=== PATIENT | female | born 1990 | race Caucasian/White ===

== ENCOUNTER 2021-01-10 13:13 | Outpatient (CLI) | payer MEDICAID, SELFPAY ==
--- NOTE | ~2021-01-10 | US_ITS ---
EXAMINATION: US OB <=14 wk fetus w TV DATE: 01/10/2021 13:53 INDICATION: Uncertain dates. TECHNIQUE: Real-time transabdominal and transvaginal pelvic ultrasound was performed. COMPARISON: None. FINDINGS: TRANSABDOMINAL ULTRASOUND: The uterus measures 13.5 x 7.8 x 9.9 cm. TRANSVAGINAL ULTRASOUND: There is an intrauterine gestational sac. The crown rump length measur es 5.3 cm, which correlates with an estimated gestational age of 12 weeks and 0 day(s) (+/-) 1 week(s ) and 1 day(s). heart motion is identified measuring 171 beats per minute (bpm) by M-mode Doppl er. The right ovary measures 1.7 x 3.2 x 1.7 cm. The left ovary measures 2.2 x 1.8 x 2.7 cm. There is normal vascular flow in the ovaries. There is no free fluid in the pelvis. IMPRESSION: 1. Single living intrauterine gestation with estimated date of delivery of 07/25/2021. Reviewed, dictated and finalized at location A. [employer] IMPRESSION: 1. Single living intrauterine gestation with estimated date of delivery of 07/25.
== END 2021-01-10 13:14 | disposition home or self-care (01) ==
PROVIDERS: Visit Provider Student in an Organized Health Care Education/Training Program
DX: Z34.91 Encounter for supervision of normal pregnancy, unspecified, first trimester (principal); Z3A.01 Less than 8 weeks gestation of pregnancy
CPT/HCPCS: 76801; 76817

== ENCOUNTER 2021-01-19 11:09 | Outpatient (CLI) | payer OTHER, SELFPAY ==
[2021-01-19 18:42] LABS: Add Urine Microscopic? YES; Appearance Urine Clear (Clear); Bilirubin Urine Negative (Negative); Blood Urine Negative (Negative); Calcium Oxalate Crystals Urine Present /hpf; Color Urine Yellow (Yellow); Glucose Urine UA Negative (Negative); Ketones Urine Negative (Negative); Leukocyte Esterase Ur Negative LEU/UL (NEGATIVE); Mucus Urine Rare /lpf; Nitrate Urine Negative (Negative); Protein Urine 1+ mg/dL (Negative); RBC Urine 0-2 /hpf (0-2); Specific Grav Ur 1.026 (1.001-1.035); Squamous Epithelial Cell Urine Few /hpf (Few); WBC Urine 0-3 /hpf (0-3)
[2021-01-19 18:45] LABS: Basophils Percent Auto 0.2 % (0.2-1.2); Eosinophils Absolute Auto 0.1 K/mm3 (0-0.3); Eosinophils Percent Auto 0.9 % (0-4.4); Hemoglobin 12.9 g/dL (12.0-15.0); Immature Granulocyte Absolute 0.04 K/mm3 (0.00-0.031); Immature Granulocyte Percent A 0.3 % (0-0.5); Lymphocytes Absolute Auto 1.99 K/mm3 (0.9-3.2); Lymphocytes Percent Auto 15.8 % (18.3-44.2); Mean Corpuscular HGB Conc 33.1 g/dl (32-36); Mean Corpuscular Hemoglobin 29.3 pg (26-34); Mean Corpuscular Volume 88.6 fl (80-100); Mean Platelet Volume 9.6 fl (7.4-10.4); Monocytes Absolute Auto 0.5 K/mm3 (0.1-0.6); Monocytes Percent Auto 3.7 % (2.6-8.5); Neutrophils Percent Auto 79.1 % (45.5-73.1); Platelet Count Result 292 k/mm3 (150-375); Red Cell Distribution Width 13.8 % (11.5-14.5); White Blood Count 12.6 K/mm3 (4.5-10.0)
[2021-01-19 19:30] LABS: Hepatitis B Surface Antigen Negative (Negative); Rubella IgG Antibody 22.2 IU/ML
[2021-01-19 19:33] LABS: Vitamin D 25 Hydroxy 26.1 ng/mL
[2021-01-19 19:41] LABS: HIV 1/2 Ab P24 Ag Result Negative (Negative)
[2021-01-19 19:46] LABS: Hepatitis C Virus Antibody Negative (Negative)
[2021-01-21 09:06] LABS: Rapid Plasma Reagin Non-Reactive (NonReactive)
[2021-01-25 02:10] LABS: Hematocrit 37.8 % (35.0-45.0); Hemoglobin 12.6 g/dL (11.7-15.5); MCH 29.5 pg (27.0-33.0); MCV 88.5 FL (80.0-100.0); RDW 14.8 % (11.0-15.0); Red Blood Cell Count 4.27 Mill/uL (3.80-5.10)
[2021-01-30 19:02] LABS: CF Result NEGATIVE (NEGATIVE)
== END 2021-01-19 11:10 | disposition home or self-care (01) ==
PROVIDERS: Visit Provider Student in an Organized Health Care Education/Training Program
DX: Z34.91 Encounter for supervision of normal pregnancy, unspecified, first trimester (principal); Z3A.13 13 weeks gestation of pregnancy
CPT/HCPCS: 36415; 81001; 81220; 81243; 82306; 83021; 84443; 85025; 86592; 86703; 86762; 86787; 86803; 86850; 86900; 86901; 87086; 87088; 87340; G0432

== ENCOUNTER → 2021-04-02 08:29 | Outpatient (CLI) | payer OTHER, SELFPAY ==
[2021-04-02 18:48] LABS: SARS-CoV-2 RNA PCR Negative
== END ==
PROVIDERS: PCP Student in an Organized Health Care Education/Training Program; Visit Provider Obstetrics & Gynecology
DX: R05 Cough (principal); Z20.822 Contact with and (suspected) exposure to COVID-19
CPT/HCPCS: C9803; U0003; U0005

== ENCOUNTER 2021-04-30 09:14 | Outpatient (CLI) | payer OTHER, SELFPAY ==
[2021-04-30 18:04] LABS: Basophils Percent Auto 0.2 % (0.2-1.2); Eosinophils Absolute Auto 0.1 K/mm3 (0-0.3); Eosinophils Percent Auto 1.2 % (0-4.4); Glucose 1 Hour PP 50gm Dose 150 mg/dL; Hematocrit 37.3 % (37.0-47.0); Hemoglobin 11.9 g/dL (12.0-15.0); Immature Granulocyte Absolute 0.04 K/mm3 (0.00-0.031); Immature Granulocyte Percent A 0.4 % (0-0.5); Lymphocytes Percent Auto 14.9 % (18.3-44.2); Mean Corpuscular HGB Conc 31.9 g/dl (32-36); Mean Corpuscular Volume 90.8 fl (80-100); Mean Platelet Volume 9.9 fl (7.4-10.4); Monocytes Absolute Auto 0.5 K/mm3 (0.1-0.6); Monocytes Percent Auto 4.6 % (2.6-8.5); Neutrophils Percent Auto 78.7 % (45.5-73.1); Platelet Count Result 287 k/mm3 (150-375); Red Blood Count 4.11 M/mm3 (4.2-5.4); Red Cell Distribution Width 13.6 % (11.5-14.5); White Blood Count 11.4 K/mm3 (4.5-10.0)
== END 2021-04-30 09:15 | disposition home or self-care (01) ==
LOC: ANHBWCLAB 09:15
PROVIDERS: PCP Student in an Organized Health Care Education/Training Program; Visit Provider Student in an Organized Health Care Education/Training Program
DX: Z34.82 Encounter for supervision of other normal pregnancy, second trimester (principal)
CPT/HCPCS: 36415; 82947; 85025

== ENCOUNTER 2021-05-28 07:05 | Outpatient (CLI) | payer OTHER, SELFPAY ==
[2021-05-28 07:37] LABS: Glucose Fasting Gestational 109 mg/dL (>/=95)
[2021-05-28 09:26] LABS: Glucose 1 Hour Gest 171 mg/dL (>/=180)
[2021-05-28 10:34] LABS: Glucose 2 Hour Gest 81 mg/dL (>/= 155)
[2021-05-28 11:17] LABS: Glucose 3 Hour Gest 97 mg/dL (>/=140)
== END 2021-05-28 07:06 | disposition home or self-care (01) ==
PROVIDERS: PCP Student in an Organized Health Care Education/Training Program; Visit Provider Student in an Organized Health Care Education/Training Program
DX: R73.09 Other abnormal glucose (principal)
CPT/HCPCS: 36415; 82951; 82952

== ENCOUNTER 2021-06-14 14:42 | Outpatient (RCR) | payer OTHER, SELFPAY ==
--- NOTE | ~2021-06-14 | US_ITS ---
EXAMINATION: US OB BPP wo non-stress DATE: 06/14/2021 16:20 INDICATION: Decreased movement during third trimester TECHNIQUE: Real-time pelvic ultrasound was performed. The interpreting radiologist was not present fo r the study. COMPARISON: None. FINDINGS: There is a single living fetus in vertex presentation. The placenta is posterior. heart rate is 145 beats per minute (bpm). Biophysical profile performed by the technologist: breathing (30 sec sustained breathing in 30 minutes): 2 out of 2 movement (3 gross body movements in 30 minutes): 2 out of 2 tone (one episode of qxuemsk-ssdnexicj-aknifnm limb movement): 2 out of 2 Amniotic fluid pocket (2 cm): 2 out of 2 Total score: 8 out of 8 IMPRESSION: 1. Single living fetus in vertex presentation. 2. Biophysical profile 8 out of 8. Reviewed, dictated and finalized at location A.
[2021-06-14 16:56] LABS: Add Urine Microscopic? NO; Appearance Urine Clear (Clear); Bilirubin Urine Negative (Negative); Blood Urine Negative (Negative); Color Urine Yellow (Yellow); Glucose Urine UA Negative (Negative); Ketones Urine Negative (Negative); Leukocyte Esterase Ur Negative LEU/UL (Negative); Nitrate Urine Negative (Negative); Protein Urine Negative (Negative); Specific Grav Ur 1.021 (1.001-1.035); Urobilinogen Urine Negative mg/dL (<2.0)
[2021-06-14 17:42] VITALS: BP 123/76; PULSE 101
== END 2021-07-05 08:12 | disposition home or self-care (01) ==
LOC: ANHOBOP 14:42
PROVIDERS: Visit Provider Student in an Organized Health Care Education/Training Program
DX: O36.8130 Decreased fetal movements, third trimester, not applicable or unspecified (principal); O40.3XX0 Polyhydramnios, third trimester, not applicable or unspecified; Z3A.34 34 weeks gestation of pregnancy
CPT/HCPCS: 59025; 76819; 81003

== ENCOUNTER 2021-06-22 09:35 | Outpatient (CLI) | payer OTHER, SELFPAY ==
[2021-06-22 18:04] LABS: Basophils Percent Auto 0.2 % (0.2-1.2); Eosinophils Absolute Auto 0.1 K/mm3 (0-0.3); Eosinophils Percent Auto 0.7 % (0-4.4); Hematocrit 35.5 % (37.0-47.0); Hemoglobin 11.4 g/dL (12.0-15.0); Immature Granulocyte Absolute 0.06 K/mm3 (0.00-0.031); Immature Granulocyte Percent A 0.5 % (0-0.5); Lymphocytes Percent Auto 15.1 % (18.3-44.2); Mean Corpuscular HGB Conc 32.1 g/dl (32-36); Mean Corpuscular Hemoglobin 28.2 pg (26-34); Mean Corpuscular Volume 87.9 fl (80-100); Mean Platelet Volume 9.9 fl (7.4-10.4); Monocytes Absolute Auto 0.7 K/mm3 (0.1-0.6); Monocytes Percent Auto 5.6 % (2.6-8.5); Neutrophils Absolute Auto 9.8 K/mm3 (1.3-6.7); Neutrophils Percent Auto 77.9 % (45.5-73.1); Platelet Count Result 345 k/mm3 (150-375); Red Blood Count 4.04 M/mm3 (4.2-5.4); Red Cell Distribution Width 13.1 % (11.5-14.5); White Blood Count 12.6 K/mm3 (4.5-10.0)
[2021-06-22 18:52] LABS: HIV 1/2 Ab P24 Ag Result Negative (Negative)
[2021-06-25 06:24] LABS: Rapid Plasma Reagin Non-Reactive (NonReactive)
== END 2021-06-22 09:36 | disposition home or self-care (01) ==
PROVIDERS: Visit Provider Student in an Organized Health Care Education/Training Program
DX: Z34.90 Encounter for supervision of normal pregnancy, unspecified, unspecified trimester (principal)
CPT/HCPCS: 36415; 85025; 86592; 86703; G0432

== ENCOUNTER 2021-07-02 17:15 | Inpatient (IN) | payer OTHER, SELFPAY ==
[2021-07-02] VITALS (16 sets, daily range): BP systolic 102–127; BP diastolic 62–93; PULSE 82–100; TEMP 35.9–36.4; BMI 44.4
--- NOTE | 2021-07-02 17:33 | LDADM ---
This patient, Justine Bedolla, was admitted to Labor/Delivery/Recovery 106 on 07/02/21 at 17:15. Plans for labor, pain management and were discussed with patient. Patient/family oriented to hospital policies and general routines including ID bracelet, bed and alarms, visiting hours, pain management, procedures, bathroom and other care routines, personal items, smoking policy, room service/diet and guest tray routines, infant security routines, and visiting hours. Patient/Family are encouraged to report perceived risks to care and to ask questions if they do not understand what they are told or what they should do. See OBIX for further documentation.
[2021-07-02 18:14] LABS: Basophils Percent Auto 0.2 % (0.2-1.2); Eosinophils Absolute Auto 0.1 K/mm3 (0-0.3); Eosinophils Percent Auto 0.8 % (0-4.4); Hematocrit 34.4 % (37.0-47.0); Hemoglobin 11.1 g/dL (12.0-15.0); Immature Granulocyte Absolute 0.09 K/mm3 (0.00-0.031); Immature Granulocyte Percent A 0.6 % (0-0.5); Lymphocytes Absolute Auto 2.22 K/mm3 (0.9-3.2); Lymphocytes Percent Auto 14.8 % (18.3-44.2); Mean Corpuscular HGB Conc 32.3 g/dl (32-36); Mean Corpuscular Hemoglobin 28.2 pg (26-34); Mean Corpuscular Volume 87.5 fl (80-100); Mean Platelet Volume 10.3 fl (7.4-10.4); Monocytes Absolute Auto 0.9 K/mm3 (0.1-0.6); Monocytes Percent Auto 5.7 % (2.6-8.5); Neutrophils Absolute Auto 11.7 K/mm3 (1.3-6.7); Neutrophils Percent Auto 77.9 % (45.5-73.1); Platelet Count Result 287 k/mm3 (150-375); Red Blood Count 3.93 M/mm3 (4.2-5.4); Red Cell Distribution Width 13.2 % (11.5-14.5)
[2021-07-02] MEDS: DINOPROSTONE 10 MG VAG INSERT VAGINAL (18:42)
[2021-07-03] VITALS (136 sets, daily range): BP systolic 68–138; BP diastolic 22–90; PULSE 59–127; RESP 16–20; TEMP 35.8–36.7; O2SAT 95–100
[2021-07-03] MEDS: fentaNYL CITRATE INJ (*CRX) 100 MCG/2 ML VIAL 50 MCG IV PUSH ×3 (00:47→07:00)
[2021-07-03] MEDS: FAMOTIDINE 20 MG TABLET PO (00:49)
[2021-07-03] MEDS: fentaNYL CITRATE INJ (*CRX) 100 MCG/2 ML VIAL IV PUSH (04:00)
[2021-07-03] MEDS: ACETAMINOPHEN 325 MG TABLET 650 MG PO ×3 (05:45→19:24)
[2021-07-03] MEDS: ONDANSETRON INJ 4 MG/2 ML VIAL IV PUSH (06:07)
[2021-07-03] MEDS: LACTATED RINGERS 1,000 ML 125 ML IV CONT ×3 (06:32→09:39)
[2021-07-03] MEDS: PHENYLEPHRINE 1,000 MCG/10 ML SYRINGE 100 MCG IV PUSH ×3 (07:31→09:31)
--- NOTE | 2021-07-03 07:59 | WPDANESEPP ---
Anes - Eval Pre Procedure Procedure: labor epidural Date/Time: 07/03/21 07:59 Surgeon: jaron Preop Diagnosis: pain during labor Pre Op Diagnosis: Induction of Labor Patient Data Age: 31 Gender: F Height: 1.63 m Weight: 117.4 kg Last Vital Signs Temp 36.2 C L 07/03/21 06:07 Pulse 68 07/03/21 07:56 Resp 20 07/03/21 06:07 BP 96/45 L 07/03/21 07:56 Pulse Ox 100 07/03/21 07:55 Allergies Allergy/AdvReac Type Severity Reaction Status Date / Time No Known Allergies Allergy Verified 06/28/21 12:55 Home Medications Medication Instructions Recorded Confirmed Type famotidine 10 mg tablet 10 mg PO BID #60 tablet 06/28/21 07/02/21 Rx vit no.[id number] 1 tablet DAILY 07/02/21 07/02/21 History [Classic ] Laboratory Tests 07/02/21 07/02/21 07/02/21 18:04 18:04 20:58 WBC 15.0 K/mm3 H K/mm3 (4.5-10.0) RBC 3.93 M/mm3 L M/mm3 (4.2-5.4) Hgb 11.1 g/dL L g/dL (12.0-15.0) Hct 34.4 % L % (37.0-47.0) MCV 87.5 fl fl (80-100) MCH 28.2 pg pg (26-34) MCHC 32.3 g/dl g/dl (32-36) RDW 13.2 % % (11.5-14.5) Plt Count 287 k/mm3 k/mm3 (150-375) MPV 10.3 fl fl (7.4-10.4) Immature Gran % (Auto) 0.6 % H % (0-0.5) Neut % (Auto) 77.9 % H % (45.5-73.1) Lymph % (Auto) 14.8 % L % (18.3-44.2) [place] % (Auto) 5.7 % % (2.6-8.5) Eos % (Auto) 0.8 % % (0-4.4) Baso % (Auto) 0.2 % % (0.2-1.2) Lymph # (Auto) 2.22 K/mm3 K/mm3 (0.9-3.2) [place] # (Auto) 0.9 K/mm3 H K/mm3 (0.1-0.6) Eos # (Auto) 0.1 K/mm3 K/mm3 (0-0.3) Baso # (Auto) 0.0 K/mm3 K/mm3 (0.0-0.1) Abs Immat Gran (auto) 0.09 K/mm3 H K/mm3 (0.00-0.031) Absolute Neuts (auto) 11.7 K/mm3 H K/mm3 (1.3-6.7) Absolute Nucleated RBC 0.0 K/mm3 K/mm3 (0.0-0.012) Nucleated RBC % 0.0 % % (0.0-0.2) RPR Pending Blood Type AB Positive Antibody Screen Negative Patient hx anesthesia problems: none Family hx anesthesia problems: none [facility] Past Medical History Medical History (Updated 07/03/21 @ 07:59 by Nesha Johnson CRNA) History of miscarriage 2012 History of vaginal delivery x 2 Morbid obesity with BMI of 40.0-44.9, adult Surgical History Surgical History History of cholecystectomy 2017 History of dilation and curettage 2012 Family History Family History Father Hypertension Grandparent Cerebrovascular accident Mother Hypertension Diabetes mellitus Social History Social History Years smoked: 20 Smoking status: Current every day smoker Tobacco type: cigarettes Second hand tobacco smoke exposure: Yes Alcohol intake: never Substance use: current Gender identity (if verbalized by the patient): Female Spiritual care concerns: No Exam Day of Procedure 07/03/21 07:59
[2021-07-03] MEDS: OXYTOCIN 30 UNITS/NS 500 ML 30 UNITS/500 ML BAG IV CONT (08:09)
--- NOTE | 2021-07-03 09:03 | PM.IMHP ---
H&P: HPI History of Present Illness Date/Time: 07/03/21 09:03 Patient admitted on 07/02/2021 for medical induction of labor due to severe polyhydramnios. Maternal- Medicine recommended delivery due to the severe polyhydramnios with an BECKY of 35.6. Patient has been informed of recommendation by M and risks benefits of induction of labor versus no induction and awaiting spontaneous labor. She agreed with the induction. Her GBS is negative. Her last cervical exam was unfavorable. Her labs were reviewed. Chief Complaint: Polyhydramnios Review of Systems Review of Systems: All systems reviewed & are unremarkable except as noted in HPI and below Constitutional: Constitutional: Reports no additional constitutional complaints and Denies headache(s) Eyes: Eyes: Denies spots in vision ENT: Reports system reviewed and no additional complaints, except as documented and Denies headache(s) Cardiovascular: Cardiovascular: Denies chest pain and Denies dyspnea Respiratory: Respiratory: Denies dyspnea Gastrointestinal: Gastrointestinal: Reports no additional gastrointestinal complaints Genitourinary: Genitourinary: Reports amenorrhea Musculoskeletal: Musculoskeletal: Reports no additional musculoskeletal complaints Integumentary/Breasts: Skin/Breast: Denies breast mass and Denies rash Neurologic: Denies headache(s) Psychiatric: Psychiatric: Reports no additional psychiatric complaints PMFSH Past Medical History Medical History History of miscarriage 2012 History of vaginal delivery x 2 Morbid obesity with BMI of 40.0-44.9, adult Surgical History Surgical History History of cholecystectomy 2017 History of dilation and curettage 2012 Family History Family History Father Hypertension Grandparent Cerebrovascular accident Mother Hypertension Diabetes mellitus Social History Social History Years smoked: 20 Smoking status: Current every day smoker Tobacco type: cigarettes Second hand tobacco smoke exposure: Yes Alcohol intake: never Substance use: current Gender identity (if verbalized by the patient): Female Spiritual care concerns: No Meds Home Medications and Allergies Home Medications Medication Instructions Recorded Confirmed Type famotidine 10 mg tablet 10 mg PO BID #60 tablet 06/28/21 07/02/21 Rx vit no.[id number] 1 tablet DAILY 07/02/21 07/02/21 History [Classic ] Allergies Allergy/AdvReac Type Severity Reaction Status Date / Time No Known Allergies Allergy Verified 06/28/21 12:55 Vital Signs Vital Signs - 24 hr 07/02/21 17:46 07/02/21 17:53 07/02/21 18:01 Temperature Pulse Rate 100 100 93 Respiratory Rate Blood Pressure 120/93 H 127/78 Pulse Oximetry 07/02/21 18:16 07/02/21 18:31 07/02/21 18:48 Temperature Pulse Rate 98 88 92 Respiratory Rate Blood Pressure 119/82 114/71 116/75 Pulse Oximetry 07/02/21 19:00 07/02/21 19:01 07/02/21 19:16 Temperature 96.7 F L Pulse Rate 88 90 Respiratory Rate Blood Pressure 123/72 110/68 Pulse Oximetry 07/02/21 19:31 07/02/21 19:46 07/02/21 20:01 Temperature Pulse Rate 84 85 88 Respiratory Rate Blood Pressure 102/65 106/65 104/62 Pulse Oximetry 07/02/21 20:16 07/02/21 20:31 07/02/21 20:46 Temperature Pulse Rate 86 91 82 Respiratory Rate Blood Pressure 108/68 114/72 104/66 Pulse Oximetry 07/02/21 23:04 07/03/21 00:40 07/03/21 00:46 Temperature 97.6 F Pulse Rate 82 74 Respiratory Rate Blood Pressure 112/67 116/65 Pulse Oximetry 07/03/21 01:02 07/03/21 01:16 07/03/21 01:31 Temperature Pulse Rate 79 71 73 Respiratory Rate Blood Pressure 113/55 L 108/66
[2021-07-03] MEDS: FAMOTIDINE 20 MG/2 ML VIAL IV PUSH (09:04)
--- NOTE | 2021-07-03 09:05 | PM.OBPNVD ---
OB - PN: Subj Subjective Date/time seen: 07/03/21 0820 heart tones 135 category 1 contractions every 2-3. Patient just received her epidural. Her recent cervical exam was 1-/ 50% -3. Will continue with Pitocin induction. Answered her questions regarding induction and polyhydramnios. OB - PN: Obj Data Labs CBC & Chem 7: 07/04/21 04:46 Labs: Laboratory Results - last 24 hr 07/02/21 07/02/21 18:04 20:58 WBC 15.0 H RBC 3.93 L Hgb 11.1 L Hct 34.4 L MCV 87.5 MCH 28.2 MCHC 32.3 RDW 13.2 Plt Count 287 MPV 10.3 Immature Gran % (Auto) 0.6 H Neut % (Auto) 77.9 H Lymph % (Auto) 14.8 L [place] % (Auto) 5.7 Eos % (Auto) 0.8 Baso % (Auto) 0.2 Lymph # (Auto) 2.22 [place] # (Auto) 0.9 H Eos # (Auto) 0.1 Baso # (Auto) 0.0 Abs Immat Gran (auto) 0.09 H Absolute Neuts (auto) 11.7 H Absolute Nucleated RBC 0.0 Nucleated RBC % 0.0 Blood Type AB Positive Antibody Screen Negative OB - PN A/P Time Spent With Patient Time: Total time spent is greater than 50% in coordination of care (as documented) at patient's floor/unit and/or counseling patient:
[2021-07-03] MEDS: ePHEDrine sulfate INJ 50 MG/ML AMPUL IV PUSH (10:17)
[2021-07-03 11:34] LABS: Rapid Plasma Reagin Non-Reactive (NonReactive)
--- NOTE | 2021-07-03 12:24 | PM.OBPNLAB ---
Pain Control Date/time seen: 07/03/21 12:24 Patient doing well. She is comfortable s/p epidural placement. SVE /-2. AROM performed with copious amount of clear fluid. EFM category 1. [place] shows contractions every 2-3 mins. Continue pitocin.
[2021-07-03] MEDS: LORATADINE 10 MG TABLET PO (14:30)
[2021-07-03] MEDS: miSOPROStol 200 MCG TABLET 1000 MCG (16:21)
--- NOTE | 2021-07-03 16:51 | P.PCNOB_ITS ---
OB - Delivery Note Procedure Delivery date: 07/03/21 Procedure: The patient is a 31-year-old now who presented to labor and delivery on the afternoon of 07/02/2021 at 37 weeks 1 day gestation for induction of labor secondary to polyhydramnios. Patient was sent directly from [facility] office for induction of labor following ultrasound which showed polyhydramnios with BECKY measuring 35 cm. Initial cervical exam was closed. Induction of labor was begun with Cervidil. Cervidil was placed and remained in place for approximately 12 hours. It was removed and patient was noted to be 1 cm dilated. Pitocin was started and slowly titrated throughout the morning. Patient became uncomfortable and requested an epidural for pain management, which was placed without difficulty. At 12:22 p.m., artificial rupture of membranes was performed with a copious amount of clear amniotic fluid noted. Cervical exam at that time was approximately 3 cm dilated. Pitocin was continued. An IUPC was placed for enhanced monitoring. The patient made progressive cervical change and was noted to be fully dilated at 3:54 p.m. The patient was prepped and draped for delivery. At 4:13 p.m., patient delivered infant head atraumatically and without difficulty in LILLIE presentation. Occiput restituted to maternal left side. With subsequent push, the infant's neck, shoulders, and rest of body delivered without difficulty. Terminal meconium was noted. The infant was feebly crying. 's nose and mouth were suctioned with bulb suction. The infant was placed on maternal abdomen where care was assumed by awaiting nursing staff. Delayed cord clamping was performed for approximately 60 seconds. The infant voided spontaneously. A true knot was noted in the cord. The cord was clamped and cut. A segment of cord was collected for cord gases. Cord blood was collected. The placenta was delivered spontaneously and intact. Uterine fundus was firm with bimanual massage. On inspection, a superficial right periurethral laceration was noted, however, was hemostatic and did not require repair. A large gush of blood was noted from the vagina. Mild uterine atony was noted and uterus became firm with massage. Cytotec 1000 mcg was administered rectally for prophylaxis. Estimated blood loss for entire delivery was approximately 300 cc. The infant was a live born female infant, Apgars 6 and 8, weighing 7 lb 4 oz. events: Labor Induction and Polyhydramnios Intrapartal events: None Induction method: per cervidil protocol Delivery augmentation: rupture of membranes and pitocin Delivery monitor: external FHT, external uterine and internal uterine Route of delivery: Laceration Description: Periurethral (superficial right) Specimen: Yes (placenta and cord, cord blood and cord gases) Quantitative Blood Loss (ml): 300 Anesthesia type: Spinal Disposition: floor Complications: No immediate complications Kathleen Baby Date of : 07/03/21 Time of : 16:13 Weeks of gestation at delivery: 37 (37.2) gender: Female Weight (pounds): 7 Weight (ounces): 4 presentation: vertex position: Left Occiput Anterior Placenta delivery description: Spontaneous cord vessel description: 3 Vessels, True Knot and Delayed Cord Clamping (x60 seconds) score one minute: 6 score five minutes: 8
[2021-07-03] MEDS: OXYTOCIN 30 UNITS/NS 500 ML 30 UNITS/500 ML BAG 125 UNITS IV CONT (17:06)
--- NOTE | 2021-07-03 19:33 | OBPPTRN ---
Patient transferred to post room #283 via wheelchair. Support person present. Oriented to unit, room, information board, rooming in, admission packet and security measures. Patient verbalizes understanding.
[2021-07-03] MEDS: CALCIUM CARBONATE (TUMS) 500 MG (200 MG ELEMENTAL) PO ×2 (22:01→22:06)
[2021-07-03] MEDS: IBUPROFEN 600 MG TABLET PO (22:04)
[2021-07-03] MEDS: HYDROcodone/acetaminophen (*CRX) 5-325 MG TABLET 1 TAB PO (22:24)
[2021-07-04] VITALS (7 sets, daily range): BP systolic 106–127; BP diastolic 50–86; PULSE 65–88; RESP 16–20; TEMP 36.2–36.8; O2SAT 97–100
[2021-07-04] MEDS: FAMOTIDINE 20 MG TABLET PO (01:13)
[2021-07-04] MEDS: HYDROcodone/acetaminophen (*CRX) 5-325 MG TABLET 1 TAB PO ×3 (02:15→17:01)
[2021-07-04] MEDS: IBUPROFEN 600 MG TABLET PO ×3 (04:41→22:19)
[2021-07-04 05:11] LABS: Hematocrit 32.1 % (37.0-47.0); Hemoglobin 10.5 g/dL (12.0-15.0)
--- NOTE | 2021-07-04 08:33 | PM.OBPNVD ---
OB - PN: Subj Subjective Date/time seen: 07/04/21 08:33 Patient comments: pain well controlled, tolerating diet and other (Decreasing lochia.) baby status: doing well OB - PN: Obj Data Labs CBC & Chem 7: 07/04/21 04:46 Labs: Laboratory Results - last 24 hr 07/02/21 07/04/21 18:04 04:46 Hgb 10.5 L Hct 32.1 L RPR Non-reactive OB - PN A/P Plan day: 1 Plan: routine care Comments: Patient doing well. Time Spent With Patient Time: Total time spent is greater than 50% in coordination of care (as documented) at patient's floor/unit and/or counseling patient: Exam Psych: Affect: normal affect Other: Abd: fundus firm below umbilicus, nontender Perineum: healing Ext: nontender
--- NOTE | 2021-07-04 11:20 | WPDANLDPN2 ---
Anes-Prog Note L&D Date/Time: 07/04/21 11:20 Comfortable throughout: labor and delivery Neuraxial method: epidural Epidural/Spinal procedure site: clean & non-tender Neuro status: Neuro function grossly intact. Patient is complaining of some numbness on the bottom of her right foot. The right foot was the first extremity to develop feeling after epidural removal. Later in the day the patient states that the bottom of her foot became numb. She denies loss of strength in the right leg and has no problem walking around and was even able to go outside this am. She will continue her pain medications including an antiinflammatory medication and call her doctor if the numbness persists. Cardiovascular status: normal Respiratory status: normal Airway patency: baseline Mental status: baseline Post-Op hydration status: normal Vital Signs: Last Vital Signs Temp 36.2 C L 07/04/21 07:45 Pulse 65 07/04/21 07:45 Resp 16 07/04/21 07:45 BP 107/62 07/04/21 07:45 Pulse Ox 99 07/04/21 07:45 Pain score (VAS): 0 I/O: Intake & Output 07/03/21 07/04/21 07/04/21 23:59 07:59 15:59 Intake Total 1800 Output Total 90 Balance 1710 Post-procedural complaints: none Patient feedback: Patient satisfied with anesthetic care.
[2021-07-05] MEDS: HYDROcodone/acetaminophen (*CRX) 5-325 MG TABLET 1 TAB PO (04:33)
[2021-07-05] MEDS: IBUPROFEN 600 MG TABLET PO ×2 (07:23→13:39)
[2021-07-05] MEDS: DOCUSATE SODIUM 100 MG CAPSULE PO (07:28)
[2021-07-05] MEDS: WITCH HAZEL 40 PADS 1 PAD TOPICAL (07:28)
[2021-07-05] MEDS: BENZOCAINE 20% AER SPR (*SP) 56 GM CAN 1 SPRAY TOPICAL (07:28)
[2021-07-05] MEDS: MULTIVIT/MIN/PREN/FOL AC/IRON TABLET 1 TAB PO (07:28)
[2021-07-05 08:00] VITALS: PULSE 72; RESP 18; O2SAT 99
[2021-07-05 08:15] VITALS: BP 112/78; PULSE 72; RESP 18; TEMP 36.3; O2SAT 99
--- NOTE | 2021-07-05 08:27 | PM.OBPNVD ---
OB - PN: Subj Subjective Date/time seen: 07/05/21 08:27 Patient doing well this AM. Pain well controlled with medication. Minimal lochia. Ambulating well. Voiding without difficulty. OB - PN: Obj Data Labs CBC & Chem 7: 07/04/21 04:46 OB - PN A/P Assessment and Plan (1) Normal spontaneous vaginal delivery: Code(s): O80 - Encounter for full-term uncomplicated delivery Status: Acute Assessment and Plan: PPD#2 doing well continue routine care will dc today under phototherapy, so pt will be no care bed emergency precautions reviewed Time Spent With Patient Time: Total time spent is greater than 50% in coordination of care (as documented) at patient's floor/unit and/or counseling patient: Exam Const: General: cooperative, healthy appearing, comfortable and no acute distress GI: Inspection: non-distended GI Palp: Yes Soft to palpation and No Tenderness to palpation present (GI) Other: fundus firm below umbilicus Extrem: Right lower extremity: edema (trace) Left lower extremity: edema (trace)
--- NOTE | 2021-07-05 08:36 | PM.OBDSVD ---
DS: Admitting Diagnosis Admitting Diagnosis Induction of labor Polyhydramnios OB - DS: Summary OB Procedures : None OB Procedures Intrapartum: Spontaneous Vag Delivery OB Procedures: : None Time Spent with Patient Time attestation: Total time spent providing and/or coordinating discharge services: DS: Data Data Completed and Pending Pending studies at discharge: Pending at discharge 07/03/21 16:18 Surgical [PTH] Routine Discharge Plan Discharge Attending physician on discharge: Talia Franco Discharging Clinician: Talia Franco Anticipated Discharge Date/Time: 07/05/21 09:10 Patient Disposition: Home, Self-Care Activity: as tolerated Diet: as tolerated and regular Discharge Instructions: Call office ([phone]) to schedule a visit in 4-6 weeks. You may take Ibuprofen 600mg every 6 hours as needed for pain. Pain medication may make you constipated. It may be helpful to take an kzgc-tsu-ucccbid stool softener, such as Colace and/or Senokot, along with the pain medication to help lessen constipation. Call office or go to ED for pain not controlled with medication, headache, chest pain, shortness of breath, fever, chills, persistent nausea or vomiting, severe abdominal pain, heavy vaginal bleeding >2 pads/hour, foul vaginal discharge or odor, or problems with your breasts. Patient Instructions: Antibiotic Form Stand Alone Forms: General Discharge Information Follow-up/Referrals: Talia Franco MD [Physician] - Discharge Medications: Continued Classic 28 mg iron- 800 mcg Tablet 1 tablet DAILY RF: 0 Discontinued famotidine 10 mg tablet 10 mg PO BID Qty: 60 RF: 0 Date of admission: 07/02/21 17:15 Primary Care Provider: PHYSICIAN,[employer] Admitting Provider: Talia Franco Attending physician on admission: Talia Franco Condition: Stable
[2021-07-07 10:34] VITALS: BP 120/71; PULSE 74; RESP 18; TEMP 36.7
== END 2021-07-05 19:00 | disposition home or self-care (01) | DRG 560 ==
LOC: ANHLDR 17:19 → ANHOB2 07-03 19:52
PROVIDERS: Admitting Provider Student in an Organized Health Care Education/Training Program; Visit Provider Student in an Organized Health Care Education/Training Program
DX: O40.3XX0 Polyhydramnios, third trimester, not applicable or unspecified (principal); Z37.0 Single live birth; Z3A.37 37 weeks gestation of pregnancy; O36.8330 Maternal care for abnormalities of the fetal heart rate or rhythm, third trimester, not applicable or unspecified; O99.334 Smoking (tobacco) complicating childbirth; F17.210 Nicotine dependence, cigarettes, uncomplicated; O99.214 Obesity complicating childbirth; E66.01 Morbid (severe) obesity due to excess calories; O71.82 Other specified trauma to perineum and vulva; O69.2XX0 Labor and delivery complicated by other cord entanglement, with compression, not applicable or unspecified
CPT/HCPCS: 36415; 85014; 85018; 85025; 86592; 86850; 86900; 86901; 88307; A9270; J2370; J2405; J2590; J3010; J7120

== ENCOUNTER 2021-09-04 10:18 | Outpatient (CLI) | payer OTHER, SELFPAY ==
[2021-09-04 19:40] LABS: Basophils Percent Auto 0.4 % (0.2-1.2); Eosinophils Absolute Auto 0.2 K/mm3 (0-0.3); Eosinophils Percent Auto 1.8 % (0-4.4); Hematocrit 39.2 % (37.0-47.0); Hemoglobin 11.8 g/dL (12.0-15.0); Immature Granulocyte Absolute 0.03 K/mm3 (0.00-0.031); Immature Granulocyte Percent A 0.3 % (0-0.5); Lymphocytes Absolute Auto 1.79 K/mm3 (0.9-3.2); Lymphocytes Percent Auto 19.1 % (18.3-44.2); Mean Corpuscular HGB Conc 30.1 g/dl (32-36); Mean Corpuscular Hemoglobin 26.7 pg (26-34); Mean Corpuscular Volume 88.7 fl (80-100); Mean Platelet Volume 9.1 fl (7.4-10.4); Monocytes Absolute Auto 0.6 K/mm3 (0.1-0.6); Monocytes Percent Auto 6.5 % (2.6-8.5); Neutrophils Absolute Auto 6.7 K/mm3 (1.3-6.7); Neutrophils Percent Auto 71.9 % (45.5-73.1); Platelet Count Result 353 k/mm3 (150-375); Red Blood Count 4.42 M/mm3 (4.2-5.4); Red Cell Distribution Width 14.2 % (11.5-14.5); White Blood Count 9.4 K/mm3 (4.5-10.0)
[2021-09-04 20:21] LABS: Hepatitis B Surface Antigen Negative (Negative)
[2021-09-04 20:27] LABS: HAV RESULT Negative (Negative); Hepatitis B Core IgM Result Negative (Negative)
[2021-09-04 20:39] LABS: Hepatitis C Virus Antibody Negative (Negative)
[2021-09-12 01:13] LABS: ALT 53 U/L (6-29); Alpha-2-Macroglobulin 205 mg/dL (106-279); Apolipoprotein A1 125 mg/dL (101-198); Fibrosis Score 0.23; Fibrosis Stage F0-F1; GGT 225 U/L (3-50); Haptoglobin 268 mg/dL (43-212); Necroinflammat Act Grade A0-A1; Total Bilirubin 0.6 mg/dL (0.2-1.2)
== END 2021-09-04 10:19 | disposition home or self-care (01) ==
LOC: ANHBWCLAB 10:19
PROVIDERS: PCP Family Medicine; Visit Provider Family Medicine
DX: R74.8 Abnormal levels of other serum enzymes (principal); D64.9 Anemia, unspecified; D72.829 Elevated white blood cell count, unspecified
CPT/HCPCS: 36415; 80074; 81596; 85025

== ENCOUNTER 2021-09-04 11:07 | Outpatient (CLI) | payer OTHER, SELFPAY ==
--- NOTE | ~2021-09-04 | US_ITS ---
US abdomen limited INDICATION: Elevated liver function tests PROCEDURE: Realtime right upper abdominal ultrasound. COMPARISON: No prior studies for comparison. FINDINGS: The pancreas is normal without focal mass or pancreatic ductal dilation. Liver echotexture is normal without focal mass or intrahepatic biliary dilatation. There is normal directional flow i n the portal vein. Gallbladder is surgically absent. Common bile duct measures 7 mm. No sonographic Harper's sign. IMPRESSION: 1: Unremarkable limited abdominal ultrasound post cholecystectomy. Reviewed, dictated and finalized at location B.
== END 2021-09-04 11:08 | disposition home or self-care (01) ==
LOC: ANHIMG 11:09
PROVIDERS: PCP Family Medicine; Visit Provider Family Medicine
DX: R74.8 Abnormal levels of other serum enzymes (principal)
CPT/HCPCS: 36415; 76705; 80074; 81596; 85025

== ENCOUNTER → 2021-09-18 03:16 | Outpatient (CLI) | payer OTHER, SELFPAY ==
[2021-09-18 18:29] LABS: SARS-CoV-2 RNA PCR Negative
== END ==
PROVIDERS: Student in an Organized Health Care Education/Training Program; PCP Family Medicine; Visit Provider Obstetrics & Gynecology
DX: Z01.812 Encounter for preprocedural laboratory examination (principal); Z20.822 Contact with and (suspected) exposure to COVID-19
CPT/HCPCS: C9803; U0003; U0005

== ENCOUNTER 2021-09-21 02:59 | Day surgery (SDC) | payer OTHER, SELFPAY ==
[2021-09-13 08:44] VITALS: BMI 40.3
--- NOTE | 2021-09-20 16:46 | PM.IMHP ---
H&P: HPI History of Present Illness Date/Time: 09/20/21 16:46 Patient is a 31-year-old who presents for scheduled surgery. Patient has a history of multiparity and does not desire future fertility. She desires permanent sterilization. In general, patient reports feeling well today without complaints. Chief Complaint: Multiparity Desires permanent sterilization Review of Systems Review of Systems: All systems reviewed & are unremarkable except as noted in HPI and below Constitutional: Constitutional: Reports as per HPI, Reports no additional constitutional complaints, Denies chills, Denies fever(s), Denies headache(s) and Denies night sweats Eyes: Eyes: Reports as per HPI and Reports no additional eye complaints ENT: Reports system reviewed and no additional complaints, except as documented, Reports as per HPI, Reports Normal hearing present and Denies headache(s) Cardiovascular: Cardiovascular: Reports as per HPI, Reports no additional cardiovascular complaints, Denies chest pain and Denies dyspnea Respiratory: Respiratory: Reports as per HPI, Reports no additional respiratory complaints, Denies cough and Denies dyspnea Gastrointestinal: Gastrointestinal: Reports as per HPI, Reports no additional gastrointestinal complaints, Denies abdominal pain, Denies change in bowel habits, Denies change in stool character, Denies nausea and Denies vomiting Genitourinary: Genitourinary: Reports no additional female genitourinary complaints, Reports as per HPI, Denies abnormal vaginal bleeding, Denies genital lesions, Denies hot flashes, Denies dyspareunia, Denies pelvic pain, Denies sexual dysfunction, Denies urinary incontinence, Denies vaginal discharge, Denies vaginal dryness and Denies vaginal odor Musculoskeletal: Musculoskeletal: Reports no additional musculoskeletal complaints and Reports as per HPI Integumentary/Breasts: Skin/Breast: Reports system reviewed and no additional complaints, except as docu, Reports as per HPI, Denies breast pain and Denies nipple discharge Neurologic: Reports system reviewed and no additional complaints, except as documented, Reports as per HPI, Reports Normal hearing present and Denies headache(s) Psychiatric: Psychiatric: Reports no additional psychiatric complaints, Reports as per HPI, Denies anxiety and Denies depression Endocrine: Endocrine: Reports no additional endocrine complaints and Reports as per HPI Hematologic/Lymphatic: Hematologic/Lymphatic: Reports no additional hematologic/lymphatic complaints and Reports as per HPI Allergic/Immunologic: Allergic/Immunologic: Reports no additional allergic/immunologic complaints and Reports as per HPI PMFSH Past Medical History Medical History Anxiety disorder due to general medical condition with panic attack Gallbladder disorder History of miscarriage 2011 History of vaginal delivery x 2 Hydradenitis Migraines Morbid obesity with BMI of 40.0-44.9, adult Surgical History Surgical History History of cholecystectomy 2016 History of dilation and curettage 2011 Family History Family History Father Hypertension Heart disease Cerebrovascular accident Grandparent Cerebrovascular accident Diabetes mellitus Hypertension Mother Hypertension Diabetes mellitus Heart disease Social History Social History Smoking packs per day: 0.5 Smoking cigarettes per day: 10.0 Years smoked: 17 Smoking pack-years: 8.50 Smoking status: Current every day smoker Tobacco type: cigarettes Second hand tobacco smoke exposure: Yes Alcohol intake: never Substance use: current Substance use type: marijuana Other substance usage details: SMOKE Last use: 09/12/21 Gender identity (if verbalized by the patient): Female [place]
[2021-09-21] VITALS (8 sets, daily range): BP systolic 92–129; BP diastolic 48–72; PULSE 51–88; RESP 12–17; TEMP 36.1–36.4; O2SAT 96–100
[2021-09-21] MEDS: LACTATED RINGERS 1,000 ML 30 ML IV CONT ×2 (06:28→08:35)
--- NOTE | 2021-09-21 06:29 | P.PNAN_ITS ---
Anes - Initial Pre Proc Eval Procedure: Operation Date: 09/21/21 07:30 Proposed Procedures p Laparoscopic Bilateral Salpingectomy - Talia Franco MD Date/Time: 09/21/21 06:29 Surgeon: Talia Franco MD Pre Op Diagnosis: desires sterilization Patient Data Age: 31 Gender: F Height: 1.63 m Weight: 106.59 kg Allergies Allergy/AdvReac Type Severity Reaction Status Date / Time No Known Allergies Allergy Verified 09/14/21 10:48 Home Medications Medication Instructions Recorded Confirmed Type doxycycline hyclate 100 mg capsule 100 mg PO BID cap 08/15/21 09/13/21 History medroxyprogesterone 150 mg/mL 150 mg IM [id number] #1 ml 08/15/21 09/13/21 Rx intramuscular suspension hydroxyzine HCl 50 mg tablet 50 mg PO QID PRN #30 tablet 09/04/21 09/13/21 Rx nicotine 14 mg TRANSDERMAL DAILY 09/13/21 09/13/21 History sertraline [Zoloft] 50 mg PO HS 09/13/21 09/13/21 History Patient hx anesthesia problems: none Family hx anesthesia problems: none Results Review: All pre-operative results and documents have been reviewed as part of the pre-operative evaluation. [facility] Past Medical History Medical History Anxiety disorder due to general medical condition with panic attack Gallbladder disorder History of miscarriage 2011 History of vaginal delivery x 2 Hydradenitis Migraines Morbid obesity with BMI of 40.0-44.9, adult Surgical History Surgical History History of cholecystectomy 2017 History of dilation and curettage 2011 Family History Family History Father Hypertension Heart disease Cerebrovascular accident Grandparent Cerebrovascular accident Diabetes mellitus Hypertension Mother Hypertension Diabetes mellitus Heart disease Social History Social History Smoking packs per day: 0.5 Smoking cigarettes per day: 10.0 Years smoked: 17 Smoking pack-years: 8.50 Smoking status: Current every day smoker Tobacco type: cigarettes Second hand tobacco smoke exposure: Yes Alcohol intake: never Substance use: current Substance use type: marijuana Other substance usage details: SMOKE Last use: 09/12/21 Living arrangements: with family Gender identity (if verbalized by the patient): Female Spiritual care concerns: No Anes - Eval Final PreProcedure Day of Procedure 09/21/21 06:29 Patient weight: morbidly obese Heart: regular rate and rhythm Lungs: clear to auscultation Airway: Mallampati scale class II Neurological: alert and oriented Last oral intake: >/= 8 hours ASA classification: III Emergent: no Anesthetic plan: proceed Anesthesia type and monitoring: general ETT and standard monitoring Results Review: All pre-operative results and documents have been reviewed as part of the pre-operative evaluation. Informed Consent: The patient's anesthetic plan and its attendant risks and benefits were discussed with the patient/family/POA. Questions were solicited and answers provided to the satisfaction of the patient/family/POA.
[2021-09-21] MEDS: KETOROLAC 15 MG/ML VIAL (*BKC) IV PUSH (06:30)
[2021-09-21] MEDS: ACETAMINOPHEN 500 MG TABLET 1000 MG PO (06:30)
--- NOTE | 2021-09-21 07:22 | WPDHPUPDATE1 ---
History and Physical Update Update Date/Time: 09/21/21 07:22 History and Physical has been reviewed, including an updated exam of the patient. There are NO changes in the patient's condition. Risks, benefits, and alternatives have been discussed and questions answered. Patient agrees to proceed with procedure.
--- NOTE | 2021-09-21 07:24 | W.PM.PROC2 ---
Procedure Note - Detailed Date of Procedure 09/21/21 Pre-op Diagnosis Multiparity Desires permanent sterilization Post-op Diagnosis same Procedure Performed Laparoscopic bilateral salpingectomy Surgeon Talia Franco MD Plugger Gunnar Perez Anesthesia general Findings Normal appearing uterus, ovaries, and fallopian tubes bilaterally Description of Procedure The patient was taken to the operating room, where she self transferred to the operating room table. She was placed in dorsal supine position. General anesthesia was administered and found to be adequate. The patient was then repositioned in dorsal lithotomy position with the use of Sarmad stirrups. She was prepped and draped in the usual sterile fashion. A red rubber catheter was used to drain the bladder of 100 cc of clear urine. A bivalve speculum was inserted into the vagina and with good visualization of the cervix, the anterior lip of the cervix was grasped with a single-tooth tenaculum. The cervix was sounded to approximately 7 cm in a HUMI uterine manipulator was inserted into the uterus and insufflated for use during the laparoscopic portion of the case. The tenaculum and speculum were removed. Carrot Tier's gloves were changed. Attention was then turned to the patient's abdomen. A small amount of local anesthesia was injected in infraumbilical region. An infraumbilical skin incision was made with a scalpel. With the abdomen tented up, a Veress needle was introduced into the abdominal cavity. Intra-abdominal placement was confirmed with saline. The Veress needle was connected to CO2 tubing and insufflation was begun. When adequate pneumoperitoneum was achieved, the Veress needle was removed and a 5 mm Optiview trocar was introduced under direct visualization with the laparoscope. The patient was placed in Trendelenburg position and a brief pelvic survey was performed with good visualization. Decision was made to place two accessory trocars for completion of the procedure, one in the left lower quadrant and the other in the right lower quadrant. A small amount of local anesthesia was administered in the right lower quadrant and a skin incision was made. A 5 mm trocar was introduced under direct visualization. Similarly, a small amount of local anesthesia was administered in the left lower quadrant and a skin incision was made. Another 5 mm trocar was introduced under direct visualization. With the use of blunt graspers, a general pelvic survey was performed. The uterus, ovaries and fallopian tubes also appeared normal. A few photographs were taken. The left fallopian tube was identified and followed through to the fimbriated end. Starting at the fimbriated and, sequential bites in the mesosalpinx beneath the fallopian tube were taken using a 5 mm LigaSure device towards the uterine cornua. When the level of the uterine cornua was reached, the fallopian tube was transected and completely detached. The fallopian tube was then removed and handed off to be sent to pathology. Attention was then turned to the patient's right fallopian tube, which in a similar manner, was grasped and followed through to the fimbriated end. With the use of the LigaSure device, sequential bites in the mesosalpinx beneath the fallopian tube were taken until the level of the uterine cornua was reached. The fallopian tube was then transected, completely detached, and removed. No bleeding was noted. A general abdominal survey was performed and all visualized structures appeared normal. Photographs were taken. The abdomen was desufflated and all trocars were removed. The patient's abdomen was cleansed and dried. The incision sites were closed with 4-0 Monocryl in a subcuticular fashion and a skin adhesive was applied on top of the incisions. The HUMI uterine manipulator was removed from the uterus. No bleeding was noted. The patient was cleansed and dried and taken out of the dorsal lithotomy position. She was awakened from
[2021-09-21] MEDS: BUPIVACAINE HCL 0.25% PF 30 ML VIAL INFILTRATE (08:17)
[2021-09-21] MEDS: fentaNYL CITRATE INJ (*CRX) 100 MCG/2 ML VIAL 25 MCG IV PUSH ×4 (09:10→09:30)
[2021-09-21] MEDS: ONDANSETRON INJ 4 MG/2 ML VIAL IV PUSH (09:42)
[2021-09-21] MEDS: SCOPOLAMINE 1.5 MG PATCH TRANSDERM (10:45)
== END 2021-09-21 10:50 | disposition home or self-care (01) ==
PROVIDERS: PCP Family Medicine; Visit Provider Student in an Organized Health Care Education/Training Program
PROC: (CPT 49320; principal; 2021-09-21 07:30)
DX: Z30.2 Encounter for sterilization (principal); Z64.1 Problems related to multiparity; F41.0 Panic disorder [episodic paroxysmal anxiety]; L73.2 Hidradenitis suppurativa; Z90.49 Acquired absence of other specified parts of digestive tract; F17.210 Nicotine dependence, cigarettes, uncomplicated; F12.90 Cannabis use, unspecified, uncomplicated; E66.01 Morbid (severe) obesity due to excess calories; Z68.41 Body mass index [BMI] 40.0-44.9, adult
CPT/HCPCS: 58661; 88302; A9270; J0330; J1100; J1170; J1885; J2250; J2405; J2704; J2710; J3010; J7120

== ENCOUNTER 2021-10-29 12:44 | Outpatient (CLI) | payer OTHER, SELFPAY ==
[2021-10-29 19:45] LABS: Alanine Aminotransferase 24 U/L (4-35); Albumin Level 4.1 g/dL (3.5-5.1); Alkaline Phosphatase 99 U/L (38-126); Aspartate Amino Transferase 26 U/L (14-36); Bilirubin,Total 0.4 mg/dL (0.2-1.3)
== END 2021-10-29 12:45 | disposition home or self-care (01) ==
LOC: ANHBWCLAB 12:46
PROVIDERS: PCP Family Medicine; Visit Provider Family Medicine
DX: R74.8 Abnormal levels of other serum enzymes (principal)
CPT/HCPCS: 36415; 80076

== ENCOUNTER 2022-03-07 07:34 | Outpatient (CLI) | payer OTHER, SELFPAY ==
--- NOTE | ~2022-03-07 | XR_ITS ---
EXAMINATION: [id number]_[id number] DATE: 03/07/2022 07:59 INDICATION: Neck pain. TECHNIQUE: 3 views of cervical spine were obtained. COMPARISON: None. FINDINGS: There is kyphosis of cervical spine. Vertebral body heights and intervertebral disc heights are normal. There is mild bilateral uncovertebral joint osteoarthritis from C3-C4 through C5-C6. At C7-T1, there is at least unilateral moderate facet joint osteoarthritis seen on the lateral radiograp h. No central canal stenosis or prevertebral soft tissue swelling. IMPRESSION: 1. Mild cervical spondylosis. Reviewed, dictated and finalized at location B.
--- NOTE | ~2022-03-07 | XR_ITS ---
EXAMINATION: XR shoulder LT min 2V DATE: 03/07/2022 08:00 INDICATION: Left shoulder pain. TECHNIQUE: 4 views of left shoulder were obtained. COMPARISON: None. FINDINGS: Bone alignment is normal. No fracture. Glenohumeral joint is normal. There is moderate acro mioclavicular joint osteoarthritis. IMPRESSION: 1. Moderate acromioclavicular joint osteoarthritis. Reviewed, dictated and finalized at location B.
[2022-03-07 18:58] LABS: Alanine Aminotransferase 30 U/L (4-35); Albumin Level 4.2 g/dL (3.5-5.1); Alkaline Phosphatase 76 U/L (38-126); Aspartate Amino Transferase 35 U/L (14-36); Bilirubin,Total 0.5 mg/dL (0.2-1.3)
== END 2022-03-07 07:35 | disposition home or self-care (01) ==
LOC: ANHBWCLAB 07:37
PROVIDERS: PCP Family Medicine; Visit Provider Family Medicine
DX: R74.8 Abnormal levels of other serum enzymes (principal); M19.012 Primary osteoarthritis, left shoulder; M47.813 Spondylosis without myelopathy or radiculopathy, cervicothoracic region
CPT/HCPCS: 36415; 72040; 73030; 80076

== ENCOUNTER 2022-05-28 12:30 | Outpatient (CLI) | payer OTHER, SELFPAY ==
--- NOTE | ~2022-05-28 | XR_ITS ---
XR shoulder LT min 2V DATE: 05/28/2022 12:52 INDICATION: Left shoulder pain, lifting injury. [place]ster a pop. TECHNIQUE: 4 views of left shoulder COMPARISON: None FINDINGS: No fracture or dislocation, periosteal reaction or bone destruction or abnormal soft tissue calcification. IMPRESSION: Negative Reviewed, dictated and finalized at location A. IMPRESSION: Negative
--- NOTE | ~2022-05-28 | MR_ITS ---
EXAMINATION: MR shoulder LT wo con DATE: 05/28/2022 13:12 INDICATION: Left shoulder pain TECHNIQUE: Magnetic resonance imaging (MRI) of the affected shoulder was performed without intravenou s contrast. Sequences included axial PD-weighted FS FSE, coronal oblique PD-weighted FS FSE, coronal oblique T2-weighted FS FSE, sagittal PD-weighted FS FSE, and sagittal T1-weighted SE. COMPARISON: None. FINDINGS: Coracoacromial arch: The acromion undersurface is minimally curved in morphology (type I-II). The coracoacromial ligament is normal. Moderate acromioclavicular osteoarthritis with the joint capsule and small inferiorly dire cted osteophytes exerting mild mass effect upon the underlying supraspinatus myotendinous junction. Rotator cuff: Mild supraspinatus tendinopathy without tear. The infraspinatus, teres minor and subscapularis tendon s are normal. Normal rotator cuff muscle bulk and signal. Biceps tendon, glenoid labrum and glenohumeral cartilage: Long head of the biceps tendon is normal. Labral degeneration with amorphous increased signal and thi ckening of the posterior inferior glenoid labrum with small more well-defined linear labral tear at t he 6:30 position of the inferior rim of the glenoid. Glenohumeral cartilage is normal. Fluid: Physiologic amount of fluid in the glenohumeral joint and biceps tendon sheath. No loose osteochondr al bodies. No abnormal increased fluid signal in the subacromial/subdeltoid bursa to suggest bursitis . Bones: Bone alignment is normal. No fracture or pathologic marrow replacing process. IMPRESSION: 1. Small tear at the inferior glenoid labrum with more amorphous degeneration of the posterior inferi or labrum. 2. Moderate acromioclavicular osteoarthritis. 3. Mild supraspinatus tendinopathy without tear. Reviewed, dictated and finalized at location B. IMPRESSION: 1. Small tear at the inferior glenoid labrum with more amorphous degeneration o f the posterior inferior labrum. 2. Moderate acromioclavicular osteoarthritis. 3. Mild supraspinatus tendinopathy without tear.
== END 2022-05-28 12:31 | disposition home or self-care (01) ==
PROVIDERS: PCP Family Medicine; Visit Provider Family Medicine
DX: M25.512 Pain in left shoulder (principal); S43.492A Other sprain of left shoulder joint, initial encounter; M19.012 Primary osteoarthritis, left shoulder; M77.8 Other enthesopathies, not elsewhere classified
CPT/HCPCS: 73030; 73221

== ENCOUNTER 2022-10-07 14:31 | Outpatient (CLI) | payer OTHER, SELFPAY ==
[2022-10-07 18:43] LABS: Alanine Aminotransferase 22 U/L (6-35); Albumin Level 4.3 g/dL (3.5-5.1); Alkaline Phosphatase 60 U/L (38-126); Anion Gap 10 mmol/L (8-16); Aspartate Amino Transferase 40 U/L (14-36); Bilirubin,Total 0.4 mg/dL (0.2-1.3); Blood Urea Nitrogen 13 mg/dL (7-17); Calcium 9.1 mg/dL (8.4-10.2); Carbon Dioxide 27 mmol/L (22-30); Chloride 103 mmol/L (98-107); Cholesterol 190 mg/dL (0-200); Estimated Glomerular Filt Rate > 60; Glucose 96 mg/dL (65-110); HDL Direct 41 mg/dL; Sodium 140 mmol/L (137-145); Triglycerides 89 mg/dL (<150)
[2022-10-07 18:48] LABS: Basophils Percent Auto 0.5 % (0.2-1.2); Eosinophils Absolute Auto 0.2 K/mm3 (0-0.3); Eosinophils Percent Auto 2.9 % (0-4.4); Hematocrit 43.2 % (37.0-47.0); Hemoglobin 13.9 g/dL (12.0-15.0); Immature Granulocyte Absolute 0.03 K/mm3 (0.00-0.031); Immature Granulocyte Percent A 0.4 % (0-0.5); Lymphocytes Absolute Auto 1.95 K/mm3 (0.9-3.2); Lymphocytes Percent Auto 25.3 % (18.3-44.2); Mean Corpuscular HGB Conc 32.2 g/dl (32-36); Mean Corpuscular Hemoglobin 28.6 pg (26-34); Mean Corpuscular Volume 88.9 fl (80-100); Mean Platelet Volume 9.3 fl (7.4-10.4); Monocytes Absolute Auto 0.5 K/mm3 (0.1-0.6); Neutrophils Absolute Auto 4.9 K/mm3 (1.3-6.7); Neutrophils Percent Auto 63.9 % (45.5-73.1); Platelet Count Result 323 k/mm3 (150-375); Red Blood Count 4.86 M/mm3 (4.2-5.4); Red Cell Distribution Width 13.4 % (11.5-14.5); White Blood Count 7.7 K/mm3 (4.5-10.0)
[2022-10-07 18:54] LABS: LDL Cholesterol Direct 115 mg/dL
== END 2022-10-07 14:32 | disposition home or self-care (01) ==
LOC: ANHBWCLAB 14:32
PROVIDERS: PCP Family Medicine; Visit Provider Family Medicine
DX: Z00.00 Encounter for general adult medical examination without abnormal findings (principal); D64.9 Anemia, unspecified; R74.8 Abnormal levels of other serum enzymes
CPT/HCPCS: 36415; 80053; 80061; 85025

== ENCOUNTER 2022-12-05 09:39 | Outpatient (CLI) | payer OTHER, SELFPAY ==
--- NOTE | ~2022-12-05 | MR_ITS ---
MRI of the left knee Clinical history: Pain Technique: Coronal proton density and proton density-weighted images, sagittal proton-density and T2 fat-sat images, and axial proton-density fat-saturated images were acquired. Findings: Anterior and posterior cruciate ligaments are intact. MCL fibers are intact, but there is e xtensive soft tissue edema about the MCL. Lateral collateral ligament complex is intact. Popliteus te ndon is intact. Medial and lateral menisci are intact, without evidence of tear. Articular cartilage is well preserved throughout the knee. Bone marrow signals are unremarkable. Extensor mechanism is intact. No significant joint effusion or Varela's cyst. Impression: Prominent soft tissue edema about the MCL suggests grade 1 MCL sprain. No definite MCL tear evident. ACL and menisci are intact. Reviewed, dictated and finalized at [facility]. [facility] Impression: Prominent soft tissue edema about the MCL suggests grade 1 MCL sprain. No defin ite MCL tear evident. ACL and menisci are intact.
== END 2022-12-05 09:40 | disposition home or self-care (01) ==
LOC: ANHIMG 09:42
PROVIDERS: PCP Family Medicine; Visit Provider Family Medicine
DX: R60.9 Edema, unspecified (principal); M25.562 Pain in left knee; W10.9XXA Fall (on) (from) unspecified stairs and steps, initial encounter
CPT/HCPCS: 73721

== ENCOUNTER 2023-09-04 14:58 | Outpatient (CLI) | payer OTHER, SELFPAY ==
[2023-09-04 18:49] LABS: Alanine Aminotransferase 28 U/L (6-35); Albumin Level 3.8 g/dL (3.5-5.1); Alkaline Phosphatase 62 U/L (38-126); Anion Gap 4 mmol/L (8-16); Aspartate Amino Transferase 63 U/L (14-36); Bilirubin,Total 0.9 mg/dL (0.2-1.3); Blood Urea Nitrogen 11 mg/dL (7-17); Calcium 8.3 mg/dL (8.4-10.2); Carbon Dioxide 26 mmol/L (22-30); Chloride 107 mmol/L (98-107); Cholesterol 146 mg/dL (0-200); Estimated Glomerular Filt Rate > 60; Glucose 92 mg/dL (65-110); HDL Direct 33 mg/dL; Potassium 3.9 mmol/L (3.4-5.0); Sodium 137 mmol/L (137-145); Triglycerides 89 mg/dL (<150)
[2023-09-04 19:00] LABS: LDL Cholesterol Direct 87 mg/dL
[2023-09-04 19:10] LABS: Hematocrit 41.8 % (37.0-47.0); Hemoglobin 13.4 g/dL (12.0-15.0); Mean Corpuscular HGB Conc 32.1 g/dl (32-36); Mean Corpuscular Hemoglobin 28.8 pg (26-34); Mean Corpuscular Volume 89.9 fl (80-100); Mean Platelet Volume 9.4 fl (7.4-10.4); Platelet Count Result 296 k/mm3 (150-375); Red Blood Count 4.65 M/mm3 (4.2-5.4); Red Cell Distribution Width 13.6 % (11.5-14.5); White Blood Count 8.9 K/mm3 (4.5-10.0)
[2023-09-04 19:16] LABS: Thyroid Stimulating Hormone 0.653 uIU/mL (0.465-4.680)
== END 2023-09-04 14:59 | disposition home or self-care (01) ==
LOC: ANHBWCLAB 14:59
PROVIDERS: PCP Nurse Practitioner Adult Health; Visit Provider Nurse Practitioner Adult Health
DX: Z13.9 Encounter for screening, unspecified (principal)
CPT/HCPCS: 36415; 80053; 80061; 84443; 85027